=== PATIENT | female | born 1995 | race Caucasian/White ===

== ENCOUNTER 2019-05-22 20:29 | Emergency (ER) | payer SELFPAY ==
[~2019-05-22] VITALS: Ht 157.5 cm; Wt 53.1 kg
--- NOTE | 2019-05-22 20:34 | NUR ---
DR MCBRIDE AT BEDSIDE FOR EVAL.
[2019-05-22] MEDS ORDERED: IPRATROPIUM NEB FS 0.5 MG/2.5 ML AMPUL.NEB ONE (20:36)
[2019-05-22] MEDS ORDERED: ALBUTEROL FS 2.5 MG/3 ML VIAL.NEB ONE (20:36)
--- NOTE | 2019-05-22 20:36 | NUR ---
RT AT BEDSIDE FOR BREATHING TX
[2019-05-22] MEDS ORDERED: predniSONE 20 MG TABLET ONE (20:42)
--- NOTE | 2019-05-22 20:45 | NUR ---
C/C SOB X 20 MIN, COUGH X3 DAYS, ON STEROIDS, NO RELIEF, ALBUTEROL AND NEB TODAY WITH NO RELIEF. APPEARS SLIGHTLY ANXIOUS. DENIES DIZZINESS, WEAKNESS, N/V. DENIES CHEST PAIN. FAMILY AT BEDSIDE.
[2019-05-22] MEDS ORDERED: ALBUTEROL FS 2.5 MG/3 ML VIAL.NEB CONTNEB ONE (21:00)
[2019-05-22] MEDS ORDERED: predniSONE 20 MG TABLET PO ONE (21:00)
[2019-05-22] MEDS ORDERED: IPRATROPIUM NEB FS 0.5 MG/2.5 ML AMPUL.NEB NEB ONE (21:00)
[2019-05-22] MEDS ORDERED: cetrizine 10 MG TABLET PO STA (21:52)
[2019-05-22] MEDS ORDERED: GUAIFENESIN/CODEINE 10 ML UDC PO STA (21:52)
[2019-05-22] MEDS ORDERED: cetrizine 10 MG TABLET ONE (22:00)
[2019-05-22] MEDS ORDERED: GUAIFENESIN/CODEINE 10 ML UDC ONE (22:00)
[2019-05-22] MEDS ORDERED: IBUPROFEN 600 MG TABLET PO ONE ×2 (22:06→22:30)
--- NOTE | 2019-05-22 22:49 | NUR ---
Patient discharged to home in stable condition. Written and verbal after care instructions given. Patient verbalizes understanding of instruction.
[2019-05-22 22:51] VITALS: BP 127/86
== END 2019-05-22 22:52 | disposition home or self-care (01) ==
LOC: ER 20:30
DX: J45.901 Unspecified asthma with (acute) exacerbation (principal); Z60.2 Problems related to living alone
CPT/HCPCS: 94644; 99285; J7512